=== PATIENT | male | born 1970 | race Two or more races ===

== ENCOUNTER 2017-11-01 18:47 | Emergency (ER) | payer SELFPAY ==
[~2017-11-01] VITALS: Ht 170.2 cm; Wt 82.2 kg
[2017-11-01] MEDS ORDERED: NITROGLYCERIN OINT 2%, 1GM TP ONE ×2 (19:30→19:44)
[2017-11-01] MEDS ORDERED: ASPIRIN 81 MG TABLET CHEW PO ONE (19:30)
[2017-11-01 19:32] LABS: BASOPHILS # (AUTO) 0.03 x10^3/uL (0-0.1); BASOPHILS % (AUTO) 0 % (0-1); EOSINOPHILS # (AUTO) 0.04 x10^3/uL (0-0.4); EOSINOPHILS % (AUTO) 0 % (1-7); LYMPHOCYTES # (AUTO) 2.74 x10^3/uL (1-3.4); LYMPHOCYTES % (AUTO) 26 % (22-44); MD NO; MEAN CORPUSCULAR HEMOGLOBIN 32.7 pg (27.5-34.5); MEAN CORPUSCULAR HGB CONC 34.8 g/dL (33.2-36.2); MONOCYTES # (AUTO) 0.69 x10^3/uL (0.2-0.8); MONOCYTES % (AUTO) 7 % (2-9); NEUTROPHILS # (AUTO) 6.88 x10^3/uL (1.8-6.8); NEUTROPHILS % (AUTO) 66 % (42-75); PLATELET COUNT 317 x10^3/uL (130-400); RED BLOOD COUNT 4.47 x10^6/uL (4.38-5.82); RED CELL DISTRIBUTION WIDTH 12.8 % (9.4-14.8)
[2017-11-01] MEDS ORDERED: MULT-516 PO (19:37)
[2017-11-01] MEDS ORDERED: ACET325T14 PO (19:37)
[2017-11-01 19:42] LABS: ANION GAP 8 mmol/L (5-15); CALCIUM 9.7 mg/dL (8.5-10.1); CHLORIDE 105 mmol/L (98-107); CREATININE 0.84 mg/dL (0.7-1.3)
[2017-11-01] MEDS ORDERED: ASPIRIN 81 MG TABLET CHEW ONE (19:45)
[2017-11-01 19:46] LABS: TROPONIN I < 0.015 ng/mL (0.000-0.045)
[2017-11-01] MEDS ORDERED: PLEASE ENTER ALLERGIES MC SCH (20:00)
[2017-11-01 20:56] VITALS: BP 160/101
== END 2017-11-01 20:59 | disposition home or self-care (01) ==
LOC: EDBD 18:47 → ED 20:53
DX: R07.2 Precordial pain (principal); I10 Essential (primary) hypertension
CPT/HCPCS: 36415; 71045; 80048; 82040; 84484; 85025; 93005; 99285